=== PATIENT | male | born 1995 | race Two or more races ===

== ENCOUNTER 2019-04-25 17:49 | Emergency (ER) | payer SELFPAY ==
[~2019-04-25] VITALS: Ht 175.3 cm; Wt 90.7 kg
[2019-04-25 18:57] VITALS: BP 142/95
--- NOTE | 2019-04-25 19:15 | PHYS DOC ---
Past Medical History Past Medical History: No Pertinent History Past Surgical History: No Surgical History Alcohol Use: None Drug Use: None Adult General Chief Complaint Chief Complaint: EARACHE/EAR PAIN HPI HPI Patient is a 23 year old male who presents to the ED today complaining of right ear pain, symptoms began one week ago. Patient denies any fever. Reports he had cough and congestion a week ago. Review of Systems Review of Systems Constitutional: Denies fever or chills [] Eyes: Denies change in visual acuity, redness, or eye pain [] HENT: Reports right ear pain. Denies nasal congestion or sore throat [] Respiratory: Denies cough or shortness of breath [] Cardiovascular: No additional information not addressed in HPI [] GI: Denies abdominal pain, nausea, vomiting, bloody stools or diarrhea [] : Denies dysuria or hematuria [] Musculoskeletal: Denies back pain or joint pain [] Integument: Denies rash or skin lesions [] Neurologic: Denies headache, focal weakness or sensory changes [] All other systems were reviewed and found to be within normal limits, except as documented in this note. Allergies Allergies Allergies Coded Allergies Type Severity Reaction Last Updated Verified No Known Drug Allergies 04/25/19 No Physical Exam Physical Exam Constitutional: Well developed, well nourished, no acute distress, non-toxic appearance. [] HENT: Normocephalic, atraumatic, bilateral external ears normal, oropharynx moist, no oral exudates, nose normal. [] Right TM is covered with moderate amount of yellow exudate. The tragus is painful. Eyes: PERRLA, EOMI, conjunctiva normal, no discharge. [] Neck: Normal range of motion, no tenderness, supple, no stridor. [] Cardiovascular:Heart rate regular rhythm, no murmur [] Lungs & Thorax: Bilateral breath sounds clear to auscultation [] Abdomen: Bowel sounds normal, soft, no tenderness, no masses, no pulsatile mass es. [] Skin: Warm, dry, no erythema, no rash. [] Back: No tenderness, no CVA tenderness. [] Extremities: No tenderness, no cyanosis, no clubbing, ROM intact, no edema. [] Neurologic: Alert and oriented X 3, normal motor function, normal sensory function, no focal deficits noted. [] Psychologic: Affect normal, judgement normal, mood normal. [] Current Patient Data Vital Signs Vital Signs Date Time Temp Pulse Resp B/P (MAP) Pulse Ox O2 Delivery O2 Flow Rate FiO2 04/25/19 18:57 98.6 67 17 98 Room Air 98.6 EKG EKG [] Radiology/Procedures Radiology/Procedures [] Course & Med Decision Making Course & Med Decision Making Pertinent Labs and Imaging studies reviewed. (See chart for details) This is a 23-year-old male patient presenting to the ED today with right otitis externa. Discharged with Ciprodex. Follow-up with the ENT in one to 2 weeks. Dragon Disclaimer Dragon Disclaimer This electronic medical record was generated, in whole or in part, using a voice recognition dictation system. Departure Departure Impression: Primary Impression: Otitis externa Disposition: HOME, SELF-CARE Condition: STABLE Referrals: BRITNEY MUÑOZ MD follow up in 1-2 weeks Patient Instructions: Otitis Externa, Pare-nk-Sroe Additional Instructions: You have an infection in your right ear canal. Please go to the pharmacy and fill the prescription medicines we gave you. You can take the pain pills as needed for pain. Follow-up with the provided ENT in 2 weeks. Scripts Tramadol Hcl (TRAMADOL HCL) 50 Mg Tablet 50 MG PO Q6HRS PRN for PAIN, #30 TAB Prov: ANIVAL JAIME APRN 04/25/19 Ciprofloxacin Hcl/Dexameth (CIPRODEX OTIC SUSPENSION) 7.5 Ml Drops.susp 4 DROP RIGHT EAR BID, #7.5 ML for 7 days Prov: ANIVAL JAIME APRN 04/25/19 Problem Qualifiers Primary Impression: Otitis externa Otitis externa type: other infective Chronicity: acute Laterality: right Qualified Codes: H60.391 - Other infective otitis externa, right ear ANIVAL JAIME APRN Apr 25, 2019 19:15
[2019-04-25] MEDS ORDERED: TRAM50TA PO (19:19)
[2019-04-25] MEDS ORDERED: CIPR7.5D RIGHT EAR (19:19)
== END 2019-04-25 19:31 | disposition home or self-care (01) ==
LOC: ER 17:49
DX: H60.391 Other infective otitis externa, right ear (principal)
CPT/HCPCS: 99283